=== PATIENT | female | born 1960 | race Caucasian/White ===

== ENCOUNTER 2020-09-17 14:35 | Inpatient (IN) | payer BC, OTHER ==
[~2020-09-17] VITALS: Ht 177.8 cm; Wt 113.7 kg
--- NOTE | 2020-09-17 14:49 | NUR ---
PT [employer] FROM WORK FOR [employer] AFTER TRIPPING ON CART. PT STATES SHE FELL ONTO LEFT SIDE OF BODY, C/O LEFT SHOULDER AND KNEE PAIN.
[2020-09-17] MEDS ORDERED: ONDANSETRON 2MG/ML, 2ML ONE (15:04)
[2020-09-17] MEDS ORDERED: MORPHINE SULFATE 4 MG/ML, 1ML ONE ×2 (15:04→15:48)
[2020-09-17] MEDS: MORPHINE SULFATE 4 MG/ML, 1ML IVPush PRN ×2 (15:06→15:52)
--- NOTE | 2020-09-17 15:27 | NUR ---
PT OFF UNIT TO IMAGING.
[2020-09-17] MEDS ORDERED: SODIUM CHLORIDE FLUSH 10ML SYR IVF ONE ×2 (15:30→18:00)
[2020-09-17] MEDS ORDERED: ONDANSETRON 2MG/ML, 2ML IVPush ONE (15:30)
--- NOTE | 2020-09-17 17:11 | NUR ---
PT RESTING ON GURGREGORIO IN NAD. AT BEDSIDE. VSS. DR. RUDD AT BEDSIDE TO DISCUSS POC.
[2020-09-17] MEDS ORDERED: DULA1.5P SC (17:27)
[2020-09-17] MEDS ORDERED: LISI-170 PO (17:27)
[2020-09-17] MEDS ORDERED: PIOG30TA23 PO (17:27)
[2020-09-17] MEDS ORDERED: EMPA1TAB7 PO (17:27)
[2020-09-17] MEDS ORDERED: PRAV80TA2 PO (17:27)
[2020-09-17] MEDS ORDERED: INSU100I34 SQ (17:27)
--- NOTE | 2020-09-17 17:49 | NUR ---
PT OFF UNIT TO CT.
[2020-09-17] MEDS ORDERED: ONDANSETRON 2MG/ML, 2ML IVPush PRN ×2 (18:00→19:00)
[2020-09-17] MEDS ORDERED: MORPHINE SULFATE 4 MG/ML, 1ML IVPush PRN (18:00)
[2020-09-17] MEDS ORDERED: SODIUM CHLORIDE FLUSH 10ML SYR IVF PRN (18:00)
--- NOTE | 2020-09-17 18:11 | NUR ---
BREAK RN: PT RETURNED FROM IMAGING. STATES 5 LEFT SHOULDER AND KNEE PAIN. RN ASKED PT IF SHE WOULD LIKE ADDITIONAL PAIN MEDICATION. PT STATED "NOT RIGHT NOW." RN INFORMED PT TO LET HER KNOW IF PAIN INCREASES. NO OTHER NEEDS AT THIS TIME. AWAITING BED ASSIGNMENT AND HOSPITALIST TO ADMIT PT.
--- NOTE | 2020-09-17 18:18 | NUR ---
BREAK RN: FIRST ATTEMPT ON CALING REPORT. FLOOR RN TO CALL BACK .
--- NOTE | 2020-09-17 18:30 | NUR ---
BREAK RN: REPORT TO SHAWNA ALVES. PT TO BE TRANSPORTED VIA GURNEY TO [facility].
[2020-09-17] MEDS ORDERED: POLYETHYLENE GLYCOL 17 GM PACKET PO PRN (19:00)
[2020-09-17] MEDS ORDERED: BISACODYL 10 MG SUPP PR PRN (19:00)
[2020-09-17 19:02] LABS: BASOPHILS % (AUTO) 0 % (0-1); EOSINOPHILS % (AUTO) 0 % (1-7); LYMPHOCYTES % (AUTO) 8 % (22-44); MEAN CORPUSCULAR HEMOGLOBIN 30.5 pg (27.0-34.8); MEAN CORPUSCULAR HGB CONC 33.2 g/dL (32.4-35.8); MONOCYTES % (AUTO) 4 % (2-9); NEUTROPHILS % (AUTO) 87 % (42-75); PLATELET COUNT 218 x10^3/uL (130-400); RED BLOOD COUNT 4.21 x10^6/uL (3.82-5.3); RED CELL DISTRIBUTION WIDTH 13.5 % (9.6-15.2)
[2020-09-17 19:10] LABS: ALANINE AMINOTRANSFERASE 20 U/L (12-78); ALBUMIN 3.4 g/dL (3.4-5.0); ANION GAP 8 mmol/L (5-15); CALCIUM 8.7 mg/dL (8.5-10.1); CHLORIDE 107 mmol/L (98-107); CREATININE 1.52 mg/dL (0.55-1.02)
[2020-09-17 19:13] LABS: ALKALINE PHOSPHATASE 65 U/L (45-117); BILIRUBIN,TOTAL 0.3 mg/dL (0.2-1.0); TOTAL PROTEIN 7.1 g/dL (6.4-8.2)
[2020-09-17 19:21] LABS: MD SCAN
[2020-09-17 19:27] VITALS: BP 110/69
[2020-09-17] MEDS: INSULIN LISPRO 100 UNITS/ML, PEN SQ-INSULIN SCH (21:00)
[2020-09-17] MEDS: PRAVASTATIN 40 MG TABLET PO SCH (21:06)
[2020-09-18 00:35] VITALS: BP 135/83
[2020-09-18 04:53] LABS: BASOPHILS % (AUTO) 0 % (0-1); EOSINOPHILS % (AUTO) 0 % (1-7); LYMPHOCYTES % (AUTO) 22 % (22-44); MEAN CORPUSCULAR HEMOGLOBIN 30.9 pg (27.0-34.8); MEAN CORPUSCULAR HGB CONC 33.5 g/dL (32.4-35.8); MEAN PLATELET VOLUME 8.1 fL (7.4-10.4); MONOCYTES % (AUTO) 8 % (2-9); NEUTROPHILS % (AUTO) 70 % (42-75); PLATELET COUNT 208 x10^3/uL (130-400); RED BLOOD COUNT 3.59 x10^6/uL (3.82-5.3); RED CELL DISTRIBUTION WIDTH 13.5 % (9.6-15.2)
[2020-09-18 04:54] LABS: MD NO
[2020-09-18] MEDS: morphine SULFATE 10 MG/ML, 1ML IVPush PRN ×4 (04:56→17:46)
[2020-09-18 05:03] LABS: ALBUMIN 2.8 g/dL (3.4-5.0); ANION GAP 8 mmol/L (5-15); CALCIUM 8.1 mg/dL (8.5-10.1); CHLORIDE 105 mmol/L (98-107)
[2020-09-18 05:06] LABS: ALANINE AMINOTRANSFERASE 17 U/L (12-78); ALKALINE PHOSPHATASE 58 U/L (45-117); BILIRUBIN,TOTAL 0.5 mg/dL (0.2-1.0); CREATININE 1.45 mg/dL (0.55-1.02); TOTAL PROTEIN 6.2 g/dL (6.4-8.2)
[2020-09-18] MEDS: INSULIN LISPRO 100 UNITS/ML, PEN SQ-INSULIN SCH ×4 (06:16→22:43)
[2020-09-18 06:50] VITALS: BP 114/72
[2020-09-18] MEDS: SENNA/DOCUSATE TABLET PO SCH (09:00)
[2020-09-18 12:11] VITALS: BP 117/72
[2020-09-18 18:43] VITALS: BP 130/71
[2020-09-18] MEDS: PRAVASTATIN 40 MG TABLET PO SCH (22:43)
[2020-09-18] MEDS: ACETAMINOPHEN 325 MG TABLET PO PRN (22:53)
[2020-09-18] MEDS: OXYcodone IR 5MG TABLET PO PRN (22:54)
[2020-09-19 01:11] VITALS: BP 109/68
[2020-09-19 08:40] LABS: BASOPHILS % (AUTO) 1 % (0-1); EOSINOPHILS % (AUTO) 3 % (1-7); LYMPHOCYTES % (AUTO) 17 % (22-44); MEAN CORPUSCULAR HEMOGLOBIN 30.7 pg (27.0-34.8); MEAN CORPUSCULAR HGB CONC 33.4 g/dL (32.4-35.8); MONOCYTES % (AUTO) 8 % (2-9); NEUTROPHILS % (AUTO) 72 % (42-75); PLATELET COUNT 198 x10^3/uL (130-400)
[2020-09-19 08:41] LABS: MD NO
[2020-09-19 08:49] LABS: ALANINE AMINOTRANSFERASE 16 U/L (12-78); ALBUMIN 3.1 g/dL (3.4-5.0); ANION GAP 5 mmol/L (5-15); CALCIUM 8.5 mg/dL (8.5-10.1); CHLORIDE 103 mmol/L (98-107)
[2020-09-19 08:52] LABS: ALKALINE PHOSPHATASE 60 U/L (45-117); BILIRUBIN,TOTAL 0.5 mg/dL (0.2-1.0); CREATININE 1.48 mg/dL (0.55-1.02); TOTAL PROTEIN 6.8 g/dL (6.4-8.2)
[2020-09-19 09:07] VITALS: BP 98/61
[2020-09-19] MEDS: OXYcodone IR 5MG TABLET PO PRN ×2 (10:12→14:55)
[2020-09-19] MEDS: SENNA/DOCUSATE TABLET PO SCH (10:15)
[2020-09-19] MEDS: INSULIN LISPRO 100 UNITS/ML, PEN SQ-INSULIN SCH ×4 (11:20→21:00)
[2020-09-19] MEDS: morphine SULFATE 10 MG/ML, 1ML IVPush PRN (11:35)
[2020-09-19 14:46] VITALS: BP 125/79
[2020-09-19 18:19] VITALS: BP 137/78
[2020-09-19] MEDS: SODIUM CHLORIDE 0.9% 1,000 ML IV SCH (19:52)
[2020-09-19] MEDS: PRAVASTATIN 40 MG TABLET PO SCH (20:59)
[2020-09-20 00:57] VITALS: BP 149/79
[2020-09-20] MEDS: ACETAMINOPHEN 325 MG TABLET PO PRN (02:31)
[2020-09-20] MEDS: OXYcodone IR 5MG TABLET PO PRN (02:31)
[2020-09-20 07:50] VITALS: BP 161/93
[2020-09-20] MEDS: INSULIN LISPRO 100 UNITS/ML, PEN SQ-INSULIN SCH ×4 (07:53→21:00)
[2020-09-20] MEDS: SENNA/DOCUSATE TABLET PO SCH (09:00)
[2020-09-20] MEDS: SODIUM CHLORIDE 0.9% 1,000 ML IV SCH ×2 (09:16→22:51)
[2020-09-20] MEDS: morphine SULFATE 10 MG/ML, 1ML IVPush PRN (09:16)
[2020-09-20] MEDS ORDERED: FENTANYL PF 100 MCG/2ML ONE (12:49)
[2020-09-20] MEDS ORDERED: MIDAZOLAM 1 MG/ML, 2ML ONE (12:49)
[2020-09-20] MEDS ORDERED: FENTANYL PF 100 MCG/2ML IV PRN ×2 (13:00→17:30)
[2020-09-20] MEDS ORDERED: MEPERIDINE/PF 25MG/0.5ML IVPush PRN ×2 (13:00→17:30)
[2020-09-20] MEDS ORDERED: HYDROcodone/APAP 7.5-325MG/15ML UDC PO PRN ×2 (13:00→17:30)
[2020-09-20] MEDS ORDERED: ONDANSETRON 2MG/ML, 2ML IVPush PRN ×2 (13:00→17:30)
[2020-09-20] MEDS ORDERED: PROMETHAZINE 25 MG/ML, 1ML IVPush PRN ×2 (13:00→17:30)
[2020-09-20] MEDS ORDERED: HYDROmorphone 1 MG/ML, 1ML INJ IVPush PRN ×2 (13:00→17:30)
[2020-09-20] MEDS ORDERED: OXYcodone 5 MG/5 ML ORAL.SOL UDC PO PRN ×2 (13:00→17:30)
[2020-09-20] MEDS ORDERED: CHLORHEXIDINE 15 ML UDC ONE (13:21)
[2020-09-20] MEDS ORDERED: CHLORHEXIDINE 15 ML UDC MM ONE (13:30)
[2020-09-20] MEDS ORDERED: PROPOFOL 10 MG/ML, 20ML ONE (14:34)
[2020-09-20] MEDS ORDERED: DEXAMETHASONE 4 MG/ML, 1ML ONE (14:34)
[2020-09-20] MEDS ORDERED: PHENYLEPHRINE 10 MG/ML ONE (14:34)
[2020-09-20] MEDS ORDERED: SUCCINYLCHOLINE 20 MG/ML, 10ML ONE (14:34)
[2020-09-20] MEDS ORDERED: ONDANSETRON 2MG/ML, 2ML ONE (14:34)
[2020-09-20] MEDS ORDERED: CEFAZOLIN 1,000 MG ONE (14:34)
[2020-09-20] MEDS ORDERED: ROCURONIUM 10 MG/ML,10ML ONE (14:34)
[2020-09-20] MEDS ORDERED: TRANEXAMIC ACID 100 MG/ML, 10ML ONE ×2 (15:34→16:50)
[2020-09-20 19:27] VITALS: BP 128/81
[2020-09-20] MEDS: PRAVASTATIN 40 MG TABLET PO SCH (21:24)
[2020-09-20] MEDS: CEFAZOLIN PMX 2GM/50ML 50 ML IVPB SCH (22:50)
[2020-09-21 01:11] VITALS: BP 109/68
[2020-09-21 04:33] VITALS: BP 119/64
[2020-09-21 05:08] LABS: BASOPHILS % (AUTO) 0 % (0-1); EOSINOPHILS % (AUTO) 0 % (1-7); LYMPHOCYTES % (AUTO) 7 % (22-44); MEAN CORPUSCULAR HEMOGLOBIN 31.1 pg (27.0-34.8); MEAN CORPUSCULAR HGB CONC 33.6 g/dL (32.4-35.8); MONOCYTES % (AUTO) 8 % (2-9); NEUTROPHILS % (AUTO) 86 % (42-75); PLATELET COUNT 193 x10^3/uL (130-400); RED BLOOD COUNT 3.31 x10^6/uL (3.82-5.3); RED CELL DISTRIBUTION WIDTH 13.3 % (9.6-15.2)
[2020-09-21 05:16] LABS: ALANINE AMINOTRANSFERASE 15 U/L (12-78); ALBUMIN 2.5 g/dL (3.4-5.0); ANION GAP 10 mmol/L (5-15); CALCIUM 8.1 mg/dL (8.5-10.1); CHLORIDE 106 mmol/L (98-107); CREATININE 1.38 mg/dL (0.55-1.02)
[2020-09-21 05:17] LABS: MD NO
[2020-09-21 05:18] LABS: ALKALINE PHOSPHATASE 53 U/L (45-117); BILIRUBIN,TOTAL 0.3 mg/dL (0.2-1.0); TOTAL PROTEIN 6.4 g/dL (6.4-8.2)
[2020-09-21] MEDS: INSULIN LISPRO 100 UNITS/ML, PEN SQ-INSULIN SCH ×4 (06:31→20:38)
[2020-09-21] MEDS: CEFAZOLIN PMX 2GM/50ML 50 ML IVPB SCH (06:31)
[2020-09-21] MEDS ORDERED: SODIUM ZIRCONIUM CYCLOSILICATE 10 GM PO ONE (07:00)
[2020-09-21 07:20] VITALS: BP 118/73
[2020-09-21] MEDS: SENNA/DOCUSATE TABLET PO SCH (10:20)
[2020-09-21] MEDS: SODIUM CHLORIDE 0.9% 1,000 ML IV SCH (10:21)
[2020-09-21] MEDS: LISINOPRIL 20 MG TABLET PO SCH (10:22)
[2020-09-21 12:25] VITALS: BP 106/68
[2020-09-21] MEDS: OXYcodone IR 5MG TABLET PO PRN ×2 (13:29→20:39)
[2020-09-21 13:51] LABS: ANION GAP 9 mmol/L (5-15); CHLORIDE 103 mmol/L (98-107); CREATININE 1.45 mg/dL (0.55-1.02)
[2020-09-21] MEDS: HEPARIN 5,000 UNITS/ML, 1ML SQ SCH ×2 (15:37→22:58)
[2020-09-21 18:59] VITALS: BP 100/55
[2020-09-21] MEDS: ACETAMINOPHEN 325 MG TABLET PO PRN (20:39)
[2020-09-21] MEDS: PRAVASTATIN 40 MG TABLET PO SCH (20:39)
[2020-09-22] MEDS: OXYcodone IR 5MG TABLET PO PRN ×5 (00:32→17:02)
[2020-09-22] MEDS: ACETAMINOPHEN 325 MG TABLET PO PRN ×5 (00:32→17:02)
[2020-09-22 01:19] VITALS: BP 116/67
[2020-09-22] MEDS: SODIUM CHLORIDE 0.9% 1,000 ML IV SCH ×2 (02:06→15:20)
[2020-09-22] MEDS: HEPARIN 5,000 UNITS/ML, 1ML SQ SCH ×3 (06:27→20:54)
[2020-09-22] MEDS: INSULIN LISPRO 100 UNITS/ML, PEN SQ-INSULIN SCH ×4 (06:30→21:28)
[2020-09-22 07:16] LABS: BASOPHILS % (AUTO) 1 % (0-1); EOSINOPHILS % (AUTO) 1 % (1-7); LYMPHOCYTES % (AUTO) 23 % (22-44); MEAN CORPUSCULAR HGB CONC 33.5 g/dL (32.4-35.8); MEAN PLATELET VOLUME 8.1 fL (7.4-10.4); MONOCYTES % (AUTO) 11 % (2-9); NEUTROPHILS % (AUTO) 64 % (42-75); PLATELET COUNT 199 x10^3/uL (130-400); RED BLOOD COUNT 2.81 x10^6/uL (3.82-5.3); RED CELL DISTRIBUTION WIDTH 13.4 % (9.6-15.2)
[2020-09-22 07:22] LABS: ALANINE AMINOTRANSFERASE 12 U/L (12-78); ALBUMIN 2.5 g/dL (3.4-5.0); ANION GAP 6 mmol/L (5-15); CALCIUM 7.8 mg/dL (8.5-10.1); CHLORIDE 109 mmol/L (98-107); CREATININE 1.21 mg/dL (0.55-1.02)
[2020-09-22 07:24] VITALS: BP 101/64
[2020-09-22 07:25] VITALS: BP 125/76
[2020-09-22 07:25] LABS: ALKALINE PHOSPHATASE 52 U/L (45-117); BILIRUBIN,TOTAL 0.3 mg/dL (0.2-1.0); TOTAL PROTEIN 6.1 g/dL (6.4-8.2)
[2020-09-22 07:31] LABS: MD NO
[2020-09-22] MEDS: SENNA/DOCUSATE TABLET PO SCH (08:45)
[2020-09-22] MEDS: LISINOPRIL 20 MG TABLET PO SCH (08:46)
[2020-09-22 15:01] VITALS: BP 101/65
[2020-09-22 18:21] VITALS: BP 103/66
[2020-09-22] MEDS: PRAVASTATIN 40 MG TABLET PO SCH (20:53)
[2020-09-23] MEDS: OXYcodone IR 5MG TABLET PO PRN ×3 (00:12→08:06)
[2020-09-23 00:29] VITALS: BP 116/60
[2020-09-23] MEDS: SODIUM CHLORIDE 0.9% 1,000 ML IV SCH (04:29)
[2020-09-23] MEDS: INSULIN LISPRO 100 UNITS/ML, PEN SQ-INSULIN SCH (06:09)
[2020-09-23] MEDS: HEPARIN 5,000 UNITS/ML, 1ML SQ SCH (06:17)
[2020-09-23] MEDS ORDERED: OXYC5TAB98 PO (07:40)
[2020-09-23] MEDS ORDERED: ASPI-1026 PO (07:40)
[2020-09-23] MEDS ORDERED: POLY17PO5 PO (07:40)
[2020-09-23] MEDS: LISINOPRIL 20 MG TABLET PO SCH (08:04)
[2020-09-23] MEDS: SENNA/DOCUSATE TABLET PO SCH (08:04)
[2020-09-23 08:05] VITALS: BP 148/78
== END 2020-09-23 11:15 | disposition home or self-care (01) | DRG 493 ==
LOC: ED 17:30 → EDIP 17:59 → 4NE 19:00 → DCLOUNGE 09-23 11:02
PROVIDERS: ADMIT Internal Medicine; ATTEND Hospitalist
PROC: 0PSG04Z Reposition Left Humeral Shaft with Internal Fixation Device, Open Approach (ICD-10-PCS; principal; 2020-09-20 14:00)
DX: S42.252A Displaced fracture of greater tuberosity of left humerus, initial encounter for closed fracture (principal); S82.145A Nondisplaced bicondylar fracture of left tibia, initial encounter for closed fracture; S82.112A Displaced fracture of left tibial spine, initial encounter for closed fracture; Z20.822 Contact with and (suspected) exposure to COVID-19; Z66 Do not resuscitate; E87.5 Hyperkalemia; E83.42 Hypomagnesemia; E78.5 Hyperlipidemia, unspecified; Z68.36 Body mass index [BMI] 36.0-36.9, adult; I10 Essential (primary) hypertension; E66.9 Obesity, unspecified; E11.9 Type 2 diabetes mellitus without complications; Z91.013 Allergy to seafood; Z90.710 Acquired absence of both cervix and uterus; W01.0XXA Fall on same level from slipping, tripping and stumbling without subsequent striking against object, initial encounter; W18.39XA Other fall on same level, initial encounter; Y99.0 Civilian activity done for income or pay; Y92.89 Other specified places as the place of occurrence of the external cause; Y99.8 Other external cause status
CPT/HCPCS: 36415; 76000; 80048; 80053; 82962; 83036; 83735; 84100; 85014; 85018; 85025; 87635; 93005; 96374; 96375; 96376; 99285; C1713; G0378; J0690; J1100; J1644; J2250; J2405; J2704; J3010; J0330; J1815; J2270; J2370; J7030